=== PATIENT | female | born 1935 | race Caucasian/White ===

== ENCOUNTER → 2017-02-09 | Outpatient (CLI) | payer OTHER ==
[~2017-02-09] VITALS: Ht 167.6 cm; Wt 68.0 kg
[~2017-02-09] MED LIST: APAP500 PO; CENTRUM SILVER1 EAC4 PO; COLACE100 MG PO; COZAAR100 MG PO; FISH OIL 1,001000 M2 PO; FOSAMAX 70 MG T70 MG PO; HYDROXYCHLOROQ200 M1 PO; LASIX 20 MG TAB20 MG PO; LIORESAL 10 MG10 MG PO; LIQUITEARS15 ML OP; MIRALAX255 GM PO; NAMENDA 10 MG T10 MG PO; OMEPRAZOLE 20 M20 M1 PO; ORENCIA 25250 MG/VIA IV; PREDNISONE 10 M10 MG PO; PROBIOTIC1 EAC1 PO; SINEMET 25-1001 EAC1 PO; VITAMIN D31000 UNI2 PO; VOLTAREN GEL 1100 G2 TOP; ZOLOFT50 MG PO; ZYRTEC10 M4 PO
--- NOTE | ~2017-02-09 | S ---
[facility] [place] [address] SURGICAL PATH RPT PROCEDURE Name: LIA AGUIRRE Brit Room #: [facility] Zac.#: [id number] Admission: 02/09/17 Date of : 35 Discharge: Report #: [id number] Path Case #: [id number] PATHOLOGY REPORT COLLECTION DATE: 02/09/2017 RECEIVED DATE: 02/09/2017 SUBMITTING PHYS: Dr. Panda Roque OTHER PHYS: Melania Zamora DO SPECIMEN(S) RECEIVED: A.Duodenal bx B.Gastric bx * * * * * * * * * * * * FINAL DIAGNOSIS: A. "Duodenal bx", biopsy: - Small bowel/duodenal mucosa with minimal histologic alterations; no evidence of celiac sprue. B. "Gastric bx", biopsy: - Gastric mucosa with mild reactive changes and mild chronic inflammation. - Negative Helicobacter pylori immunohistochemical stain (block B1); control reacted appropriately. (CLW:fredy; d/t: 02/12/2017) PATHOLOGIST: Lissa Melo M.D. REPORT ELECTRONICALLY SIGNED BY: Lissa Melo M.D. DATE/TIME: 02/12/2017 23:14 * * * * * * * * * * * * GROSS PATHOLOGY: A. Received in formalin labeled "Lia Aguirre, duodenal biopsy," are 2 segments of oconnell soft tissue measuring 0.8 x 0.5 x 0.3 cm in aggregate dimensions and ranging from 0.4 to 0.5 cm in maximum dimension. The specimen is submitted entirely in cassette A1. B. Received in formalin labeled "Lia gAuirre, gastric biopsy," are 3 segments of oconnell soft tissue measuring 0.6 x 0.5 x 0.2 cm in aggregate dimensions and ranging from 0.3 to 0.6 cm in maximum dimension. The specimen is submitted entirely in cassette B1. (KAH; 02/10/2017) CLINICAL HISTORY: Pre-op diagnosis: Dysphagia, N/V Post-op diagnosis: Small hiatal hernia [address] [address] SURGICAL PATH RPT PROCEDURE Name: LUPE AGUIRRET Brit Room #: [facility].#: [id number] Admission: 02/09/17 Date of : 35 Discharge: Report #: [id number] Path Case #: [id number] INITIAL CPT CODE(S): A; 67633 B; 58843, 00493 Professional services performed by [facility] at [address], [place] [address] Technical services performed by [facility] at [address] [place] [address], [facility] [address] [address]. [facility] [address] [place] [address] PHONE: [phone] DIRECTOR: Jerome Grier M.D. * * * END OF REPORT * * *
--- NOTE | ~2017-02-09 | P ---
[facility] [place] [address] PROCEDURE REPORT Name: AMRIKMAYRA C Room #: REG [facility]#: [id number] Admission: 02/09/17 Attend Phys: Panda Jacobs Discharge: Date of : 35 Report #: [id number] THIS REPORT FOR: //name// CC: Panda Zamora DO DATE OF SERVICE: 02/09/2017 PROCEDURE PERFORMED: Upper endoscopy with biopsies and esophageal dilation. HISTORY OF PRESENT ILLNESS: The patient is an 81-year-old female who was seen in the office on 01/25/2017 with complaints of recurrent nausea, vomiting, dysphagia and a chronic cough. She is currently taking omeprazole 20 mg b.i.d., previous upper endoscopy was reviewed at that time in 2007, which by a different western felt hat blocker showed a mild Schatzki's ring. She denies any odynophagia. Plan is for EGD with dilation. DESCRIPTION OF PROCEDURE: The risks and benefits of the procedure were explained to the patient and her family, those risks including but not limited to bleeding, perforation, the risk of sedation. They understood these risks and gave informed consent. Sedation was given using propofol per anesthesia. Next, using a standard [employer]ion upper endoscope, the scope was placed in the patient's mouth and advanced under direct vision through the esophagus, stomach and into the second portion of the duodenum. The esophagus was normal throughout. The GE junction was normal. No evidence of Schatzki's ring or esophagitis was noted. Upon entering the stomach, a small hiatal hernia was noted. Overall, the gastric mucosa was normal. Because of the patient's symptoms, biopsies were obtained to rule out the possibility of H. pylori. The pylorus was normal and patent. The duodenal bulb, first and second portion were all normal. Biopsies were also obtained to rule out the possibility of celiac sprue. The scope was then brought back up into the patient's stomach and a Savary guidewire was inserted through the scope, leaving the guidewire in place as the scope was then withdrawn. Next, a 48-[place] Savary dilation of the esophagus was performed without difficulty. The wire and dilator were removed. The scope was reintroduced into the patient's stomach. There was no evidence of mucosal tear after dilation. The scope was then withdrawn and the procedure terminated. The patient tolerated the procedure well. IMPRESSION: 1. Small hiatal hernia. 2. Otherwise, normal upper endoscopy. RECOMMENDATIONS: 1. Await biopsy results. 2. Observe the patient post-dilation. [address] [address] PROCEDURE REPORT Name: MAYRA ROWLEY Room #: REG [facility] Erik#: [id number] Admission: 02/09/17 Attend Phys: Panda Jacobs Discharge: Date of : 35 Report #: [id number] 3. If the patient has continued nausea and vomiting in the future, consider gastric emptying time or a trial of a promotility agent as we discussed in the office such as Reglan or erythromycin potentially. Thank you for allowing me to participate in her care. By: [id number] Panda Roque MD /nt
== END | disposition home or self-care (01) ==
LOC: GI 08:39
DX: R13.10 Dysphagia, unspecified (principal); K44.9 Diaphragmatic hernia without obstruction or gangrene; F32.9 Major depressive disorder, single episode, unspecified; Z87.891 Personal history of nicotine dependence; I10 Essential (primary) hypertension; Z90.5 Acquired absence of kidney; K21.9 Gastro-esophageal reflux disease without esophagitis; M06.9 Rheumatoid arthritis, unspecified; Z98.890 Other specified postprocedural states
CPT/HCPCS: 62110; 62900